=== PATIENT | female | born 1970 | race Caucasian/White ===

== ENCOUNTER 2018-11-19 15:37 | Outpatient (CLI) | payer BC | END 2018-11-19 23:59 | disposition home or self-care (01) | LOC: RAD 15:37 | DX: Z01.818 Encounter for other preprocedural examination (principal); J32.8 Other chronic sinusitis | CPT/HCPCS: 71046 ==

== ENCOUNTER 2020-06-29 13:28 | Outpatient (CLI) | payer BC | END 2020-06-29 23:59 | disposition home or self-care (01) | LOC: RT 13:28 | DX: Z31.83 Encounter for assisted reproductive fertility procedure cycle (principal) ==